=== PATIENT | female | born 1970 | race Caucasian/White ===

== ENCOUNTER → 2018-01-22 | Day surgery (SDC) | payer OTHER ==
[~2018-01-22] MED LIST: ASPIR 8181 MG PO; BACITRACIN 50,000 UNIT VIAL ONE; CEFAZOLIN SOD 1 GM VIAL ONE; DEXAMETHASONE SOD PHOS INJ 4 MG/ML VIAL ONE; ENABLEX7.5 MG PO; FENTANYL CITRATE/PF 100MCG/2 ML INJ ONE; KETOROLAC TROMETHAMINE 30 MG/ML VIAL ONE; LIDOCAINE 2%/ EPINEPHRINE 20ML MDV ONE; LIDOCAINE HCL 2% LOCAL INJ 5 ML SDV VIAL INJ ONE; LIPITOR10 MG PO; MIDAZOLAM HCL 2 MG/2 ML VIAL ONE; NAPROSYN500 MG PO; ONDANSETRON HCL INJ 2 MG/ML VIAL ONE; PRILOSEC OTC20 MG PO; PROPOFOL IV EMULSION 10 MG/ML 20 ML VIAL ONE; ROPIVACAINE 0.5% 5 MG/ML 30 ML SDV ONE; SEVOFLURANE INHAL SOLN 250 ML PEN BTL ONE; VITAMIN D PO
--- NOTE | 2018-01-22 15:32 | Operative Report ---
DATE OF PROCEDURE: January 22, 2018 HEEL FINISHER: Hi Ellis PA-C The patient was brought to the operating room for induction of anesthesia. Throughout this case, my PA's assistance was necessary for retraction of soft tissue and positioning of the extremity. This allows for efficient and technically successful execution of the operation and is considered medically necessary. PREOPERATIVE DIAGNOSIS: 1. Left knee anterior cruciate ligament tear. 2. Medial meniscal tear. 3. Lateral meniscal tear. POSTOPERATIVE DIAGNOSIS: 1. Left knee anterior cruciate ligament tear. 1. Medial meniscal tear. PROCEDURE: 1. Left knee arthroscopy. 2. Partial medial meniscectomy. 3. Anterior cruciate ligament reconstruction. INDICATIONS: The patient is a 47-year-old lady who complains of disabling left knee pain and instability. This has gone on for several months despite conservative management. Clinic exam and MRI findings are consistent with meniscal tears and a torn anterior cruciate ligament. The patient feels the instability is disabling. She says this prevents her from being able to do normal activities of daily life without her knee buckling. She is highly motivated to proceed with surgical reconstruction. The risks and benefits and recovery were all explained. She stated she understood and wished to proceed. DESCRIPTION OF PROCEDURE: The patient was brought to the operating room and placed under general anesthetic. She received a regional block and prophylactic antibiotics in the holding area. Her left lower extremity was examined under anesthesia. She had a positive pivot shift. The extremity was prepped and draped in a sterile manner. A preoperative time out was performed. The extremity had been exsanguinated, and a proximal tourniquet was inflated to 300 mmHg. Standard arthroscopy portals were established. The knee was insufflated with sterile saline and systematically inspected. 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 The trochlear groove was well preserved. The medial compartment was inspected. 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 This was irreducible and irreparable. A pair of meniscal scissors was used to resect the meniscus at the base of each tear. The remainder of the meniscus was probed and noted to be hook stable. There was a small rent in the superior articular surface at the posterior horn. This did not displace, and I did not feel like it needed to either be repaired resected. The notch was inspected. The anterior cruciate ligament was chronically absent, and there was a positive empty lateral wall sign. The lateral compartment was inspected and probed. This was well preserved. There was no evidence of a meniscal tear. Attention was returned to the notch. The remnant of the ACL was debrided. A bone-cutting shaver was used to perform notchplasty. An extra-articular alignment guide was then used to place a guide pin into the footprint of the previous ACL. This positioning was also referenced off of the posterior border of the anterior horn of the lateral meniscus. A tibialis anterior allograft had been prepared on the back table. This was 10 mm in diameter. A 10 mm reamer was used to over-ream the guide pin. A 5 mm [id number] guide was then used to place a guide pin into the lateral portion of the femoral notch. This was brought out through the lateral thigh soft tissue. This was over-reamed with a 10 mm acorn reamer to a distance of about 35 mm. The 4.5 mm EndoButton was used to over-ream the guide pin. The depth of the EndoButton tunnel was 40 mm. A 15 mm EndoButton was applied to the graft. This was passed through both tunnels. The EndoButton deployed over the anterior femoral cortex. The knee was cycled, and a 10 mm x 25 mm bioabsorbable interference screw was placed into the tibial tunnel. Good fixation was felt to be obtained. The knee was examined and noted to have a negative Juany test. The graft was probed and noted to be under appropriate tension. The graft that extended from the tibial tunnel was resected. The wounds were irrigated. The arthroscopic instruments were removed. The incisions were closed. A sterile bandage and a Rd brace were applied. She was extubated and transported to the recovery room in stable condition. There was no blood loss, and all needle and sponge counts were correct. Job#: [id number]
== END | disposition home or self-care (01) ==
LOC: OR 06:16
PROVIDERS: ATTEND Specialist
DX: S83.212A Bucket-handle tear of medial meniscus, current injury, left knee, initial encounter (principal); S83.282A Other tear of lateral meniscus, current injury, left knee, initial encounter; S83.512A Sprain of anterior cruciate ligament of left knee, initial encounter; M22.42 Chondromalacia patellae, left knee; S83.241A Other tear of medial meniscus, current injury, right knee, initial encounter; K21.9 Gastro-esophageal reflux disease without esophagitis; J44.9 Chronic obstructive pulmonary disease, unspecified; E78.5 Hyperlipidemia, unspecified; F17.210 Nicotine dependence, cigarettes, uncomplicated; W01.0XXA Fall on same level from slipping, tripping and stumbling without subsequent striking against object, initial encounter; Y93.89 Activity, other specified; Z79.82 Long term (current) use of aspirin; Z68.32 Body mass index [BMI] 32.0-32.9, adult
CPT/HCPCS: 29881; 29888; 81025; J0690; J1100; J1885; J2001 ×2; J2250; J2405; J2795

== ENCOUNTER 2018-02-14 10:42 | Outpatient (RCR) | payer OTHER ==
[~2018-02-14 10:42] MED LIST changes: -BACITRACIN 50,000 UNIT VIAL ONE; -CEFAZOLIN SOD 1 GM VIAL ONE; -DEXAMETHASONE SOD PHOS INJ 4 MG/ML VIAL ONE; -KETOROLAC TROMETHAMINE 30 MG/ML VIAL ONE; -LIDOCAINE 2%/ EPINEPHRINE 20ML MDV ONE; -LIDOCAINE HCL 2% LOCAL INJ 5 ML SDV VIAL INJ ONE; -MIDAZOLAM HCL 2 MG/2 ML VIAL ONE; -ONDANSETRON HCL INJ 2 MG/ML VIAL ONE; -PROPOFOL IV EMULSION 10 MG/ML 20 ML VIAL ONE; -ROPIVACAINE 0.5% 5 MG/ML 30 ML SDV ONE; -SEVOFLURANE INHAL SOLN 250 ML PEN BTL ONE
== END 2018-02-16 ==
LOC: PT 10:42
PROVIDERS: ATTEND Specialist
DX: S83.512D Sprain of anterior cruciate ligament of left knee, subsequent encounter (principal); M25.562 Pain in left knee; M25.662 Stiffness of left knee, not elsewhere classified; M62.81 Muscle weakness (generalized); R26.2 Difficulty in walking, not elsewhere classified

== ENCOUNTER 2018-03-14 10:53 | Outpatient (RCR) | payer OTHER ==
[~2018-03-14 10:53] MED LIST changes: -FENTANYL CITRATE/PF 100MCG/2 ML INJ ONE
== END 2018-03-18 ==
LOC: PT 10:53
PROVIDERS: ATTEND Specialist
DX: S83.512D Sprain of anterior cruciate ligament of left knee, subsequent encounter (principal); M25.562 Pain in left knee; M25.662 Stiffness of left knee, not elsewhere classified; R26.2 Difficulty in walking, not elsewhere classified; M62.81 Muscle weakness (generalized)
CPT/HCPCS: 97139

== ENCOUNTER 2018-04-04 09:44 | Outpatient (RCR) | payer OTHER | END 2018-04-18 | LOC: PT 09:44 | PROVIDERS: ATTEND Specialist | DX: S83.512D Sprain of anterior cruciate ligament of left knee, subsequent encounter (principal); M25.562 Pain in left knee; M25.662 Stiffness of left knee, not elsewhere classified; M62.81 Muscle weakness (generalized); R26.2 Difficulty in walking, not elsewhere classified | CPT/HCPCS: 97139 ==